=== PATIENT | female | born 1955 | race Two or more races ===

== ENCOUNTER 2024-04-13 16:33 | Inpatient (IN) | payer MEDICARE, OTHER ==
[~2024-04-13] VITALS: Ht 165.1 cm; Wt 72.6 kg
[2024-04-13 17:52] LABS: BASOPHILS # (AUTO) 0.1 K/uL (0.0-0.2); BASOPHILS % (AUTO) 0.9 % (0.0-2.0); EOSINOPHILS # (AUTO) 0.1 K/uL (0.0-0.7); EOSINOPHILS % (AUTO) 1.9 % (0.0-6.0); HEMATOCRIT 44 % (33-45); HEMOGLOBIN 14.7 g/dL (11.5-14.8); LYMPHOCYTES # (AUTO) 2.1 K/uL (0.8-4.8); LYMPHOCYTES % (AUTO) 26.9 % (20.0-44.0); MEAN CORPUSCULAR HEMOGLOBIN 30 PG (26.0-33.0); MEAN CORPUSCULAR HGB CONC 34 g/dl (31.0-36.0); MEAN CORPUSCULAR VOLUME 89 fL (82-100); MONOCYTES # (AUTO) 0.8 K/uL (0.1-1.30); MONOCYTES % (AUTO) 10.7 % (2.0-12.0); NEUTROPHILS # (AUTO) 4.6 K/uL (1.8-8.9); NEUTROPHILS % (AUTO) 59.6 % (43.0-81.0); PLATELET COUNT (AUTO) 208 K/uL (150-450); RED BLOOD CELL COUNT(AUTO) 4.87 MIL/uL (4.0-5.2); RED CELL DISTRIBUTION WIDTH 12.8 % (11.5-15.0); WHITE BLOOD COUNT (AUTO) 7.8 K/uL (4.3-11.0)
[2024-04-13 18:19] LABS: CALCIUM, SERUM 10.2 mg/dL (8.5-10.1); CARBON DIOXIDE 28 mmol/L (21-32); CHLORIDE 102 mmol/L (98-107); CREATININE 0.7 mg/dL (0.6-1.3); GLUCOSE 110 mg/dL (74-106); POTASSIUM 3.5 mmol/L (3.5-5.1); SODIUM SERUM 140 mmol/L (136-145); UREA NITROGEN, BLOOD 10 mg/dL (7-18)
[2024-04-13 18:29] LABS: ALANINE AMINOTRANSFERASE 31 U/L (12-78); ALBUMIN 3.3 g/dL (3.4-5.0); ALCOHOL, BLOOD < 3 mg/dL (0-10); ALKALINE PHOSPHATASE 99 U/L (46-116); ASPARTATE AMINOTRANSFERASE 23 U/L (15-37); BILIRUBIN,DIRECT 0.2 mg/dL (0.0-0.2); BILIRUBIN,TOTAL 0.6 mg/dL (0.2-1.0); SALICYLATE 1.1 mg/dL (2.8-20.0)
[2024-04-13 18:30] LABS: ACETAMINOPHEN 0 ug/ml (10-30)
[2024-04-13] MEDS ORDERED: NA P133E RC (19:17)
[2024-04-13] MEDS ORDERED: MAGN400O6 PO (19:17)
[2024-04-13] MEDS ORDERED: BISA10SU11 RC (19:17)
[2024-04-13] MEDS ORDERED: CLOP75TA15 PO (19:17)
[2024-04-13] MEDS ORDERED: ASCO-352 PO (19:17)
[2024-04-13] MEDS ORDERED: DONE5TAB34 PO (19:17)
[2024-04-13] MEDS ORDERED: AMIT25TA9 PO (19:17)
[2024-04-13] MEDS ORDERED: CLOT15CR27 TP (19:17)
[2024-04-13] MEDS ORDERED: ATOR80TA PO (19:17)
[2024-04-13] MEDS ORDERED: LORA-258 PO (19:17)
[2024-04-13] MEDS ORDERED: ESTR1TAB28 PO (19:17)
[2024-04-13] MEDS ORDERED: CITA20TA19 PO (19:17)
[2024-04-13] MEDS ORDERED: AZEL23SP2 BNOSTRILS (19:17)
[2024-04-13] MEDS ORDERED: MULT-225 PO (19:17)
[2024-04-13] MEDS ORDERED: TIOT4MIS3 IH (19:17)
[2024-04-13] MEDS ORDERED: VITA1TAB56 PO (19:17)
[2024-04-13 20:44] LABS: APPEARANCE,URINE CLOUDY (CLEAR); BILIRUBIN,URINE NEGATIVE (NEGATIVE); BLOOD, URINE 1+ Ery/uL (NEGATIVE); COLOR,URINE YELLOW (YELLOW); KETONES,URINE TRACE mg/dL (NEGATIVE); LEUKOCYTE ESTERASE ,URINE 1+ (NEGATIVE); NITRITE, URINE POSITIVE (NEGATIVE); PH,URINE 6.5 (5.0-8.0); PROTEIN,URINE NEGATIVE (NEGATIVE); UGLUCOSE NEGATIVE (NEGATIVE)
[2024-04-13 20:54] LABS: AMPHETAMINE, URINE NEGATIVE (NEGATIVE); BARBITURATE, URINE NEGATIVE (NEGATIVE); BENZODIAZEPINE, URINE NEGATIVE (NEGATIVE); CANNABINOID, URINE NEGATIVE (NEGATIVE); COCCAINE, URINE NEGATIVE (NEGATIVE); OPIATE, URINE NEGATIVE (NEGATIVE); PHENCYCLIDINE SCREEN,URINE NEGATIVE (NEGATIVE)
[2024-04-13 20:56] LABS: ADD URINE CULTURE YES; BACTERIA,URINE Many /HPF (None Seen)
[2024-04-13 20:57] LABS: SQUAMOUS EPITHELIAL CELL,UR Moderate /HPF (None Seen)
[2024-04-13] MEDS: CEFTRIAXONE 1GM BAG (ER ONLY) 1 GM/50 ML PIGGYBACK IV ONE (21:48)
[2024-04-13] MEDS ORDERED: CEPHALEXIN MONOHYDRATE 500 MG CAPSULE PO ONE (21:51)
[2024-04-13] MEDS: CEPHALEXIN MONOHYDRATE 250 MG CAPSULE PO SCH (21:57)
[2024-04-13] MEDS ORDERED: CEFTRIAXONE 1GM BAG (ER ONLY) 50 ML IV ONE (21:58)
[2024-04-13] MEDS ORDERED: BISACODYL SUPP (10 MG) 10 MG/SUPP.RECT SUPP.RECT RC PRN (23:00)
[2024-04-13] MEDS ORDERED: MAGNESIUM HYDROXIDE 30 ML UDC PO PRN (23:00)
[2024-04-13 23:55] VITALS: BP 119/82; TEMP 98.3; O2SAT 95
[2024-04-14] MEDS ORDERED: MAGNESIUM HYDROXIDE 30 ML UDC PO PRN
[2024-04-14] MEDS ORDERED: ACETAMINOPHEN 325 MG TABLET PO PRN
[2024-04-14] MEDS ORDERED: MAG HYDROX/AL HYDROX/SIMETH 30 ML UDC PO PRN
[2024-04-14] MEDS ORDERED: QUETIAPINE FUMARATE 25 MG TABLET PO PRN
[2024-04-14] MEDS: BLOOD SUGAR DIAGNOSTIC 1 EACH STRIP IN ONE (00:51)
[2024-04-14] MEDS ORDERED: DEXTROSE 50%-WATER 50 ML DISP.SYRIN IV PRN (01:00)
[2024-04-14] MEDS: BLOOD SUGAR DIAGNOSTIC 1 EACH STRIP IN SCH (07:48)
[2024-04-14 08:00] VITALS: BP 114/69; TEMP 98.2; O2SAT 96
[2024-04-14] MEDS: INSULIN REGULAR, HUMAN 100 UNIT/ML 3 ML VIAL SQ PRN (08:39)
[2024-04-14] MEDS: ESTRADIOL 1 MG TABLET PO SCH (09:00)
[2024-04-14] MEDS: MULTIVITAMINS,THERAGRAN 1 UDTAB TABLET PO SCH (09:00)
[2024-04-14] MEDS: CEPHALEXIN MONOHYDRATE 500 MG CAPSULE PO SCH (09:00)
[2024-04-14] MEDS: CLOPIDOGREL BISULFATE 75 MG TABLET PO SCH (09:07)
[2024-04-14] MEDS: ASCORBIC ACID 500 MG TABLET PO SCH (09:08)
[2024-04-14] MEDS: ATORVASTATIN 40 MG TABLET PO SCH (09:08)
[2024-04-14] MEDS: Z GUARD REMEDY 4 OZ OINT TP PRN (09:09)
[2024-04-14] MEDS: CLOTRIMAZOLE 1% 15 GM TUBE TP SCH (09:10)
[2024-04-14] MEDS: VITAMIN B COMP W-C 1 TAB TABLET PO SCH (09:11)
[2024-04-14 16:00] VITALS: BP 131/83; TEMP 98.6; O2SAT 97
[2024-04-14] MEDS: busPIRone 5 MG TABLET PO SCH (17:30)
[2024-04-14 20:20] VITALS: BP 139/72; TEMP 98; O2SAT 95
[2024-04-14 20:45] VITALS: O2SAT 95
[2024-04-14 20:52] VITALS: O2SAT 98
[2024-04-14] MEDS: QUETIAPINE FUMARATE 25 MG TABLET PO SCH (21:51)
[2024-04-14] MEDS: ALBUTEROL FS 2.5 MG/0.5 ML VIAL.NEB NEB SCH (23:51)
[2024-04-14] MEDS: IPRATROPIUM NEB FS 0.5 MG/2.5 ML AMPUL.NEB NEB SCH (23:51)
[2024-04-15] VITALS (11 sets, daily range): BP systolic 124–132; BP diastolic 50–75; TEMP 97.5–98.4; O2SAT 95–100
[2024-04-15] MEDS: FLUTICASONE PROPIONATE 16 GM BOTTLE NS SCH (09:00)
[2024-04-15 10:59] LABS: BASOPHILS # (AUTO) 0.1 K/uL (0.0-0.2); BASOPHILS % (AUTO) 0.7 % (0.0-2.0); EOSINOPHILS # (AUTO) 0.1 K/uL (0.0-0.7); EOSINOPHILS % (AUTO) 1.6 % (0.0-6.0); HEMATOCRIT 45 % (33-45); HEMOGLOBIN 15.1 g/dL (11.5-14.8); LYMPHOCYTES # (AUTO) 1.7 K/uL (0.8-4.8); LYMPHOCYTES % (AUTO) 21.5 % (20.0-44.0); MEAN CORPUSCULAR HEMOGLOBIN 30 PG (26.0-33.0); MEAN CORPUSCULAR HGB CONC 34 g/dl (31.0-36.0); MEAN CORPUSCULAR VOLUME 89 fL (82-100); MONOCYTES # (AUTO) 0.6 K/uL (0.1-1.30); MONOCYTES % (AUTO) 8.2 % (2.0-12.0); NEUTROPHILS # (AUTO) 5.4 K/uL (1.8-8.9); PLATELET COUNT (AUTO) 214 K/uL (150-450); RED BLOOD CELL COUNT(AUTO) 5.05 MIL/uL (4.0-5.2); RED CELL DISTRIBUTION WIDTH 13.1 % (11.5-15.0); WHITE BLOOD COUNT (AUTO) 7.9 K/uL (4.3-11.0)
[2024-04-15 11:27] LABS: CALCIUM, SERUM 10.9 mg/dL (8.5-10.1); CREATININE 0.8 mg/dL (0.6-1.3); POTASSIUM 3.3 mmol/L (3.5-5.1)
[2024-04-15] MEDS: DIVALPROEX SODIUM 125 MG TABLET.DR PO SCH (21:34)
[2024-04-16] VITALS (9 sets, daily range): BP systolic 103–135; BP diastolic 57–97; TEMP 97.9–98.7; O2SAT 94–97
[2024-04-16] MEDS: ZOLPIDEM TARTRATE 5 MG TABLET PO PRN (01:32)
[2024-04-17] VITALS (10 sets, daily range): BP systolic 115–134; BP diastolic 54–92; TEMP 97.8–98.6; O2SAT 96–99
[2024-04-17] MEDS: DIVALPROEX SODIUM 125 MG TABLET.DR PO SCH (14:09)
[2024-04-18] VITALS (7 sets, daily range): BP systolic 90–116; BP diastolic 50–70; TEMP 98–98.9; O2SAT 94–96
[2024-04-18] MEDS: QUETIAPINE FUMARATE 25 MG TABLET PO SCH (21:27)
[2024-04-19] VITALS (7 sets, daily range): BP systolic 100–130; BP diastolic 52–77; TEMP 97.6–97.8; O2SAT 94–98
[2024-04-19] MEDS: busPIRone 5 MG TABLET PO SCH (13:00)
[2024-04-20] VITALS (9 sets, daily range): BP systolic 113–120; BP diastolic 60–85; TEMP 97.5–97.9; O2SAT 94–98
[2024-04-21] VITALS (8 sets, daily range): BP systolic 94–114; BP diastolic 39–88; TEMP 96.9–97.8; O2SAT 91–98
[2024-04-21 07:51] LABS: ALBUMIN 2.7 g/dL (3.4-5.0); BILIRUBIN,TOTAL 0.8 mg/dL (0.2-1.0); CALCIUM, SERUM 8.8 mg/dL (8.5-10.1); CREATININE 0.7 mg/dL (0.6-1.3); POTASSIUM 3.6 mmol/L (3.5-5.1); TOTAL PROTEIN, SERUM 6.3 g/dL (6.4-8.2)
[2024-04-21] MEDS: DIVALPROEX SODIUM 125 MG TABLET.DR PO SCH (21:21)
[2024-04-22] VITALS (8 sets, daily range): BP systolic 113–137; BP diastolic 55–62; TEMP 97.8–98.3; O2SAT 92–99
[2024-04-23] VITALS (9 sets, daily range): BP systolic 106–142; BP diastolic 55–58; TEMP 97.9–98.6; O2SAT 95–99
[2024-04-24] VITALS (7 sets, daily range): BP systolic 100–126; BP diastolic 57–81; TEMP 98–98.5; O2SAT 95–99
[2024-04-25] VITALS (10 sets, daily range): BP systolic 102–118; BP diastolic 53–96; TEMP 97.6–97.8; O2SAT 96–100
[2024-04-25] MEDS ORDERED: methylPREDNISolone DOSPAK(4MG) 1 PACK TAB.DS.PK PO ONE ×2 (10:30→11:00)
[2024-04-25] MEDS: methylPREDNISolone (4MG) 4 MG TABLET PO SCH (12:16)
[2024-04-25] MEDS: QUETIAPINE FUMARATE 25 MG TABLET PO SCH (21:11)
[2024-04-26 08:00] VITALS: BP 113/55; TEMP 98; O2SAT 94
[2024-04-26] MEDS ORDERED: DIVALPROEX SODIUM 125 MG TABLET.DR PO ONE (13:58)
[2024-04-26] MEDS ORDERED: DIVALPROEX SODIUM 125 MG TABLET.DR PO SCH (14:00)
[2024-04-26] MEDS: DIVALPROEX SODIUM 125 MG CAP.SPRINK PO ONE (14:20)
[2024-04-26 16:00] VITALS: BP 136/90; TEMP 98; O2SAT 96
[2024-04-26 20:00] VITALS: BP 138/54; TEMP 98.1; O2SAT 96
[2024-04-26] MEDS: DIVALPROEX SODIUM 125 MG CAP.SPRINK PO SCH (21:18)
[2024-04-27 12:30] VITALS: O2SAT 97
[2024-04-27 12:45] VITALS: O2SAT 99
== END 2024-04-27 14:00 | DRG 885 ==
LOC: ER 16:44 → GPS 21:05
PROVIDERS: ADMIT Psychiatry & Neurology Psychiatry; ATTEND Nurse Practitioner Family
DX: F39 Unspecified mood [affective] disorder (principal); F01.52 Vascular dementia, unspecified severity, with psychotic disturbance; G93.41 Metabolic encephalopathy; F01.53 Vascular dementia, unspecified severity, with mood disturbance; F01.511 Vascular dementia, unspecified severity, with agitation; E44.0 Moderate protein-calorie malnutrition; N39.0 Urinary tract infection, site not specified; F29 Unspecified psychosis not due to a substance or known physiological condition; J44.9 Chronic obstructive pulmonary disease, unspecified; F31.9 Bipolar disorder, unspecified; E11.9 Type 2 diabetes mellitus without complications; Z88.6 Allergy status to analgesic agent; Z91.041 Radiographic dye allergy status; Z79.02 Long term (current) use of antithrombotics/antiplatelets; Z79.51 Long term (current) use of inhaled steroids; Z79.899 Other long term (current) drug therapy; I10 Essential (primary) hypertension; E78.5 Hyperlipidemia, unspecified; Z73.6 Limitation of activities due to disability; E88.09 Other disorders of plasma-protein metabolism, not elsewhere classified; Z87.440 Personal history of urinary (tract) infections; B96.89 Other specified bacterial agents as the cause of diseases classified elsewhere
CPT/HCPCS: 36415; 71045-TC; 80048-TC; 80053-TC; 80061-TC; 80076-TC; 80164-TC; 81001; 82962-TC; 85025-TC; 87081-TC; 87086-TC; 94760-TC; 94761-TC; 94762-TC; 94799-TC; 97116-TC; 97530-TC; G0480; J0696; J1815; J7509

== ENCOUNTER 2024-07-25 18:38 | Inpatient (IN) | payer MEDICARE, OTHER ==
[~2024-07-25] VITALS: Ht 167.6 cm; Wt 72.6 kg
[~2024-07-25 18:38] MED LIST: ASCO-352 PO; ATOR80TA PO; AZEL23SP2 BNOSTRILS; BISA10SU11 RC; CLOP75TA15 PO; CLOT15CR27 TP; DONE5TAB34 PO; ESTR1TAB28 PO; MAGN400O6 PO; MULT-225 PO; NA P133E RC; TIOT4MIS3 IH; VITA1TAB56 PO
[2024-07-25] MEDS ORDERED: DIVA-76 PO (19:10)
[2024-07-25] MEDS ORDERED: MIRT7.5T10 PO (19:10)
[2024-07-25] MEDS ORDERED: IPRA0.2S49 IH (19:10)
[2024-07-25] MEDS ORDERED: ALBU2.5V13 IH (19:10)
[2024-07-25] MEDS ORDERED: MAG30ORA PO (19:10)
[2024-07-25] MEDS ORDERED: GABA-532 PO (19:10)
[2024-07-25] MEDS ORDERED: DIVA-78 PO (19:10)
[2024-07-25] MEDS ORDERED: ACET-868 PO (19:10)
[2024-07-25] MEDS ORDERED: QUET25TA PO (19:10)
[2024-07-25] MEDS ORDERED: BUSP5TAB3 PO (19:10)
[2024-07-25 19:48] LABS: BASOPHILS % (AUTO) 0.7 % (0.0-2.0); EOSINOPHILS # (AUTO) 0.1 K/uL (0.0-0.7); HEMATOCRIT 41 % (33-45); HEMOGLOBIN 13.7 g/dL (11.5-14.8); LYMPHOCYTES # (AUTO) 1.5 K/uL (0.8-4.8); LYMPHOCYTES % (AUTO) 27.5 % (20.0-44.0); MEAN CORPUSCULAR HEMOGLOBIN 29 PG (26.0-33.0); MEAN CORPUSCULAR HGB CONC 33 g/dl (31.0-36.0); MEAN CORPUSCULAR VOLUME 87 fL (82-100); MONOCYTES # (AUTO) 0.6 K/uL (0.1-1.30); MONOCYTES % (AUTO) 10.9 % (2.0-12.0); NEUTROPHILS # (AUTO) 3.4 K/uL (1.8-8.9); NEUTROPHILS % (AUTO) 59.9 % (43.0-81.0); PLATELET COUNT (AUTO) 202 K/uL (150-450); RED BLOOD CELL COUNT(AUTO) 4.72 MIL/uL (4.0-5.2); RED CELL DISTRIBUTION WIDTH 15.1 % (11.5-15.0); WHITE BLOOD COUNT (AUTO) 5.6 K/uL (4.3-11.0)
[2024-07-25 20:03] LABS: CALCIUM, SERUM 10.2 mg/dL (8.5-10.1); CARBON DIOXIDE 29 mmol/L (21-32); CHLORIDE 101 mmol/L (98-107); CREATININE 0.8 mg/dL (0.6-1.3); GLUCOSE 122 mg/dL (74-106); POTASSIUM 3.6 mmol/L (3.5-5.1); SODIUM SERUM 137 mmol/L (136-145); UREA NITROGEN, BLOOD 16 mg/dL (7-18)
[2024-07-25 20:11] LABS: ALANINE AMINOTRANSFERASE 21 U/L (12-78); ALBUMIN 3.6 g/dL (3.4-5.0); ALCOHOL, BLOOD < 3 mg/dL (0-10); ALKALINE PHOSPHATASE 96 U/L (46-116); ASPARTATE AMINOTRANSFERASE 31 U/L (15-37); BILIRUBIN,DIRECT 0.3 mg/dL (0.0-0.2); TOTAL PROTEIN, SERUM 7.1 g/dL (6.4-8.2)
[2024-07-25 20:16] LABS: SALICYLATE 1.4 mg/dL (2.8-20.0)
[2024-07-25 20:17] LABS: ACETAMINOPHEN <10 ug/ml (10-30)
[2024-07-25 21:17] LABS: BILIRUBIN,URINE Negative (NEGATIVE); BLOOD, URINE Trace-intact Ery/uL (NEGATIVE); COLOR,URINE YELLOW (YELLOW); KETONES,URINE Trace mg/dL (NEGATIVE); LEUKOCYTE ESTERASE ,URINE Trace (NEGATIVE); NITRITE, URINE Negative (NEGATIVE); PROTEIN,URINE Negative (NEGATIVE); UGLUCOSE Negative (NEGATIVE); UROBILINOGEN,URINE 0.2 EU/dL (0.2)
[2024-07-25 21:18] LABS: APPEARANCE,URINE SLIGHTLY CLOUDY (CLEAR)
[2024-07-25 21:22] LABS: ADD URINE CULTURE YES; BACTERIA,URINE 2+ /HPF (None Seen)
[2024-07-25] MEDS ORDERED: BISACODYL SUPP (10 MG) 10 MG/SUPP.RECT SUPP.RECT RC PRN (21:30)
[2024-07-25] MEDS ORDERED: IPRATROPIUM NEB FS 0.5 MG/2.5 ML AMPUL.NEB IH PRN (21:30)
[2024-07-25] MEDS: HALOPERIDOL LACTATE INJ 5 MG/ML VIAL IM ONE (21:30)
[2024-07-25] MEDS ORDERED: ALBUTEROL FS 2.5 MG/0.5 ML VIAL.NEB IH PRN (21:30)
[2024-07-25 21:31] LABS: AMPHETAMINE, URINE NEGATIVE (NEGATIVE); BARBITURATE, URINE NEGATIVE (NEGATIVE); BENZODIAZEPINE, URINE NEGATIVE (NEGATIVE); CANNABINOID, URINE NEGATIVE (NEGATIVE); COCCAINE, URINE NEGATIVE (NEGATIVE); OPIATE, URINE NEGATIVE (NEGATIVE); PHENCYCLIDINE SCREEN,URINE NEGATIVE (NEGATIVE)
[2024-07-25] MEDS ORDERED: HALOPERIDOL LACTATE INJ 5 MG/ML VIAL ONE (21:31)
[2024-07-26 00:20] VITALS: O2SAT 95
[2024-07-26] MEDS ORDERED: ACETAMINOPHEN 325 MG TABLET PO PRN (01:00)
[2024-07-26] MEDS ORDERED: QUETIAPINE FUMARATE 25 MG TABLET PO PRN (01:00)
[2024-07-26] MEDS ORDERED: MAG HYDROX/AL HYDROX/SIMETH 30 ML UDC PO PRN (01:00)
[2024-07-26] MEDS ORDERED: MAGNESIUM HYDROXIDE 30 ML UDC PO PRN (01:00)
[2024-07-26] MEDS ORDERED: ZOLPIDEM TARTRATE 5 MG TABLET PO PRN (01:00)
[2024-07-26] MEDS: BLOOD SUGAR DIAGNOSTIC 1 EACH STRIP IN ONE (01:08)
[2024-07-26 08:00] VITALS: BP 124/60; TEMP 97.8; O2SAT 97
[2024-07-26] MEDS: GLUCERNA SHAKE 237 ML CAN PO SCH (08:00)
[2024-07-26] MEDS ORDERED: AZELASTINE BNOSTRILS SCH (09:00)
[2024-07-26] MEDS ORDERED: FLUTICASONE BNOSTRILS SCH (09:00)
[2024-07-26] MEDS: CEPHALEXIN MONOHYDRATE 500 MG CAPSULE PO SCH (09:30)
[2024-07-26] MEDS: ASCORBIC ACID 500 MG TABLET PO SCH (09:30)
[2024-07-26] MEDS: ESTRADIOL 1 MG TABLET PO SCH (09:30)
[2024-07-26] MEDS: ATORVASTATIN 40 MG TABLET PO SCH (09:30)
[2024-07-26] MEDS: MULTIVITAMINS,THERAGRAN 1 UDTAB TABLET PO SCH (09:30)
[2024-07-26] MEDS: GABAPENTIN 100 MG CAPSULE PO SCH (09:30)
[2024-07-26] MEDS: CLOPIDOGREL BISULFATE 75 MG TABLET PO SCH (09:30)
[2024-07-26] MEDS: VITAMIN B COMP W-C 1 TAB TABLET PO SCH (09:34)
[2024-07-26] MEDS: OLANZAPINE 2.5 MG TABLET PO SCH (14:31)
[2024-07-26] MEDS: DIVALPROEX SODIUM 125 MG TABLET.DR PO SCH (14:32)
[2024-07-26 16:00] VITALS: BP 128/78; TEMP 98; O2SAT 94
[2024-07-26 20:00] VITALS: BP 132/83; TEMP 98.4; O2SAT 98
[2024-07-27 07:26] LABS: BASOPHILS % (AUTO) 0.5 % (0.0-2.0); EOSINOPHILS # (AUTO) 0.1 K/uL (0.0-0.7); HEMATOCRIT 39 % (33-45); HEMOGLOBIN 13.1 g/dL (11.5-14.8); LYMPHOCYTES # (AUTO) 2.1 K/uL (0.8-4.8); LYMPHOCYTES % (AUTO) 30.2 % (20.0-44.0); MEAN CORPUSCULAR HEMOGLOBIN 29 PG (26.0-33.0); MEAN CORPUSCULAR HGB CONC 33 g/dl (31.0-36.0); MEAN CORPUSCULAR VOLUME 87 fL (82-100); MONOCYTES # (AUTO) 0.9 K/uL (0.1-1.30); MONOCYTES % (AUTO) 12.7 % (2.0-12.0); NEUTROPHILS # (AUTO) 3.7 K/uL (1.8-8.9); NEUTROPHILS % (AUTO) 54.6 % (43.0-81.0); PLATELET COUNT (AUTO) 223 K/uL (150-450); RED BLOOD CELL COUNT(AUTO) 4.52 MIL/uL (4.0-5.2); RED CELL DISTRIBUTION WIDTH 15.1 % (11.5-15.0); WHITE BLOOD COUNT (AUTO) 6.9 K/uL (4.3-11.0)
[2024-07-27 07:54] LABS: CALCIUM, SERUM 9.4 mg/dL (8.5-10.1); CREATININE 0.6 mg/dL (0.6-1.3); POTASSIUM 3.3 mmol/L (3.5-5.1)
[2024-07-27 08:27] VITALS: BP 119/60; TEMP 97.5; O2SAT 95
[2024-07-27] MEDS: POTASSIUM CHLORIDE 20 MEQ TAB.PRT.SR PO ONE (11:27)
[2024-07-27] MEDS ORDERED: Z GUARD REMEDY 4 OZ OINT TP PRN (11:30)
[2024-07-27 15:41] VITALS: BP 126/67; TEMP 97.5; O2SAT 98
[2024-07-27 20:19] VITALS: BP 124/58; TEMP 98.1; O2SAT 96
[2024-07-27] MEDS: Z GUARD REMEDY 4 OZ OINT TP PRN (21:16)
[2024-07-27] MEDS: Z GUARD REMEDY 4 OZ OINT TP SCH (21:33)
[2024-07-28 08:00] VITALS: BP 123/61; TEMP 97.8; O2SAT 94
[2024-07-28 16:00] VITALS: BP 108/52; TEMP 97.7; O2SAT 94
[2024-07-28] MEDS: ENSURE ENLIVE CHOC 237 ML CAN PO SCH (17:00)
[2024-07-28] MEDS ORDERED: ALBUTEROL FS 2.5 MG/0.5 ML VIAL.NEB IH PRN (18:18)
[2024-07-28 20:41] VITALS: BP 143/66; TEMP 97.8; O2SAT 95
[2024-07-28] MEDS: ZOLPIDEM TARTRATE 5 MG TABLET PO PRN (21:24)
[2024-07-29 08:00] VITALS: BP 116/60; TEMP 97.9; O2SAT 97
[2024-07-29] MEDS: OLANZAPINE 2.5 MG TABLET PO SCH (08:33)
[2024-07-29] MEDS: DIVALPROEX SODIUM 125 MG TABLET.DR PO SCH (14:00)
[2024-07-29 16:00] VITALS: BP 119/55; TEMP 97.7; O2SAT 98
[2024-07-29 21:06] VITALS: BP 136/55; TEMP 97.9; O2SAT 98
[2024-07-30 19:52] VITALS: BP 125/56; TEMP 97.9; O2SAT 99
[2024-07-30] MEDS: OLANZAPINE 5 MG TABLET PO SCH (20:29)
[2024-07-31 08:00] VITALS: BP 102/68; TEMP 97.9; O2SAT 97
[2024-07-31] MEDS: OLANZAPINE 2.5 MG TABLET PO SCH (09:44)
[2024-07-31 16:00] VITALS: BP 108/55; TEMP 98.1; O2SAT 97
[2024-07-31 20:00] VITALS: BP 131/73; TEMP 98; O2SAT 96
[2024-08-01 08:00] VITALS: BP 135/98; TEMP 97.8; O2SAT 93
[2024-08-01 16:00] VITALS: BP 102/59; TEMP 98; O2SAT 96
[2024-08-01 20:00] VITALS: BP 117/67; TEMP 97.8; O2SAT 98
[2024-08-01] MEDS: DIVALPROEX SODIUM 125 MG CAP.SPRINK PO SCH (21:15)
[2024-08-02 08:00] VITALS: BP 108/78; TEMP 98; O2SAT 98
[2024-08-02 16:00] VITALS: BP 123/60; TEMP 98; O2SAT 95
[2024-08-02 20:00] VITALS: BP 133/62; TEMP 98.3; O2SAT 99
[2024-08-03 08:00] VITALS: BP 133/65; TEMP 97.7; O2SAT 98
[2024-08-03 16:00] VITALS: BP 128/97; TEMP 97.5; O2SAT 95
[2024-08-03 20:32] VITALS: BP 125/70; TEMP 98.1; O2SAT 98
[2024-08-04 08:00] VITALS: BP 107/55; TEMP 97.9; O2SAT 97
[2024-08-04 15:57] VITALS: BP 107/50; TEMP 97.3; O2SAT 96
[2024-08-04 20:37] VITALS: BP 110/76; TEMP 97.9; O2SAT 95
[2024-08-05 08:00] VITALS: BP 101/89; TEMP 98.7; O2SAT 98
[2024-08-05 16:00] VITALS: BP 117/55; TEMP 98.6; O2SAT 97
[2024-08-05 20:06] VITALS: BP 129/67; TEMP 98.2; O2SAT 96
[2024-08-05] MEDS: DIVALPROEX SODIUM 125 MG CAP.SPRINK PO SCH (20:13)
[2024-08-06 08:00] VITALS: BP 118/96; TEMP 97.8; O2SAT 96
[2024-08-06 16:16] VITALS: BP 98/58; TEMP 98.3; O2SAT 96
[2024-08-06 20:03] VITALS: BP 129/58; TEMP 97.7; O2SAT 96
[2024-08-07 08:00] VITALS: BP 146/57; TEMP 98.7; O2SAT 98
[2024-08-07 16:00] VITALS: BP 105/83; TEMP 98.8; O2SAT 96
[2024-08-07 20:00] VITALS: BP 131/60; TEMP 98.5; O2SAT 96
[2024-08-08 07:40] LABS: CALCIUM, SERUM 9.5 mg/dL (8.5-10.1); CREATININE 0.5 mg/dL (0.6-1.3); MAGNESIUM 1.8 mg/dL (1.8-2.4); POTASSIUM 3.9 mmol/L (3.5-5.1)
[2024-08-08 08:00] VITALS: BP 117/89; TEMP 97.6; O2SAT 94
[2024-08-08] MEDS: IV D5W 1,000 ML IV PRN (11:59)
[2024-08-08 16:00] VITALS: BP 109/64; TEMP 98.1; O2SAT 97
[2024-08-08 20:42] VITALS: BP 132/73; TEMP 97.9; O2SAT 97
[2024-08-09 08:00] VITALS: BP 122/65; TEMP 98; O2SAT 93
[2024-08-09 09:24] LABS: CALCIUM, SERUM 9.6 mg/dL (8.5-10.1); CREATININE 0.5 mg/dL (0.6-1.3); MAGNESIUM 1.9 mg/dL (1.8-2.4); POTASSIUM 3.6 mmol/L (3.5-5.1)
== END 2024-08-09 13:50 | DRG 885 ==
LOC: ER 18:52 → GPS 23:29
PROVIDERS: ADMIT Psychiatry & Neurology Psychiatry; ATTEND Internal Medicine
DX: F39 Unspecified mood [affective] disorder (principal); F01.53 Vascular dementia, unspecified severity, with mood disturbance; F01.511 Vascular dementia, unspecified severity, with agitation; N39.0 Urinary tract infection, site not specified; F01.52 Vascular dementia, unspecified severity, with psychotic disturbance; F31.64 Bipolar disorder, current episode mixed, severe, with psychotic features; F29 Unspecified psychosis not due to a substance or known physiological condition; J44.9 Chronic obstructive pulmonary disease, unspecified; Z20.822 Contact with and (suspected) exposure to COVID-19; B96.89 Other specified bacterial agents as the cause of diseases classified elsewhere; E11.9 Type 2 diabetes mellitus without complications; E87.6 Hypokalemia; E78.5 Hyperlipidemia, unspecified; Z79.899 Other long term (current) drug therapy; Z91.199 Patient's noncompliance with other medical treatment and regimen due to unspecified reason; Z73.6 Limitation of activities due to disability
CPT/HCPCS: 36415; 80048-TC; 80061-TC; 80076-TC; 80164-TC; 81001; 82962-TC; 83735-TC; 85025-TC; 87081-TC; 97110-TC; 97112-TC; 97116-TC; 97530-TC; G0480; J1630; J7070